=== PATIENT | male | born 1955 | race Caucasian/White ===

== ENCOUNTER 2022-12-23 19:37 | Emergency (ER) | payer SELFPAY ==
[~2022-12-23] VITALS: Ht 177.8 cm; Wt 140.0 kg
[2022-12-23] MEDS ORDERED: KETOROLAC 60MG/2ML VIAL IM ONE (20:00)
[2022-12-24 03:40] LABS: CLARITY URINE CLEAR (CLEAR); COLOR URINE YELLOW (YELLOW); KETONES URINE NEGATIVE (NEGATIVE); LEUKOCYTE ESTERASE URINE TRACE (NEGATIVE); NITRITE URINE NEGATIVE (NEGATIVE); OCCULT BLOOD URINE NEGATIVE (NEGATIVE); PH URINE 5.5 (4.5-8.0); PROTEIN URINE NEGATIVE (NEGATIVE); SPECIFIC GRAVITY URINE 1.025 (1.005-1.030)
[2022-12-24] MEDS ORDERED: LIDOCAINE 5% PATCH TOP ONE (04:15)
[2022-12-24] MEDS ORDERED: KETOROLAC 60MG/2ML VIAL IM NR (04:15)
[2022-12-24 04:34] LABS: CHLORIDE 113 mEq/L (98-107)
[2022-12-24 04:40] LABS: BASOPHILS % 0.5 % (0.0-2.0); HEMOGLOBIN. 14.9 g/dL (14.0-18.0); LYMPHOCYTES % 23.7 % (20.0-50.0); MEAN CORPUSCULAR HEMOGLOBIN 31.6 pg (28.0-32.0); MEAN CORPUSCULAR VOLUME 95.3 fL (80.0-94.0); MEAN PLATELET VOLUME 8.8 fl (7.4-10.4); MONOCYTES % 7.5 % (2.0-8.0); NEUTROPHILS % 66.3 % (40.0-76.0); PLATELET 230 x1000/uL (130-400); RED BLOOD CELL COUNT 4.72 mill/uL (4.7-6.1); RED CELL DISTRIBUTION WIDTH 13.5 % (11.6-14.6)
[2022-12-24] MEDS ORDERED: ACET-2708 MT (05:03)
[2022-12-24] MEDS ORDERED: BACL-141 MT (05:03)
[2022-12-24] MEDS ORDERED: LIDO700A15 TP (05:03)
[2022-12-24 05:45] VITALS: BP 139/80
== END 2022-12-24 05:58 | disposition home or self-care (01) ==
LOC: ER 19:37
DX: N20.0 Calculus of kidney (principal); K80.20 Calculus of gallbladder without cholecystitis without obstruction; M47.896 Other spondylosis, lumbar region; R03.0 Elevated blood-pressure reading, without diagnosis of hypertension; K76.0 Fatty (change of) liver, not elsewhere classified; Z87.442 Personal history of urinary calculi
CPT/HCPCS: 36415; 74176; 80053; 81003; 85025; 96372; 99285; J1885; Z7610